=== PATIENT | male | born 1990 | race Caucasian/White ===

== ENCOUNTER 2016-11-15 17:53 | Emergency (ER) | payer SELFPAY ==
[2016-11-15 17:57] VITALS: BP 144/85; PULSE 105; TEMP 99.4; BMI 29.2
[2016-11-15] MEDS ORDERED: IBUPROFEN 600 MG TABLET (FP) PO ONE ×2 (19:38)
--- NOTE | 2016-11-15 19:42 | PDOC ---
History of Present Illness - General Chief Complaint: Laceration Stated Complaint: HAND LACERATION Time Seen by Provider: 11/15/16 18:42 History Source: Patient Exam Limitations: No Limitations - History of Present Illness Initial Comments: 11/15/16 19:36 Patient here with palm laceration and avulsion laceration to right hand. Was using a car [place]opa that slipped and with patient attempting to grab incised the palm midpoint of his right hand in a jagged laceration with an avulsion laceration at second MCP. Denies numbness or tingling to fingers, no other injury. Denies crush injury and states washed with peroxide soap and water at home. Occurred: reports: just prior to arrival, this evening Severity: reports: mild Pain Location: reports: upper extremity (right hand) Past History - Travel Traveled outside of the country in the last 30 days: No Close contact w/someone who was outside of country & ill: No - Past Medical History Allergies/Adverse Reactions: Allergies Allergy/AdvReac Type Severity Reaction Status Date / Time No Known Allergies Allergy Verified 11/15/16 17:56 Home Medications: Ambulatory Orders NK [No Known Home Medication] 08/02/14 Other medical history: NONE - Suicide/Smoking/Psychosocial Hx Smoking Status: Yes Smoking History: Current some day smoker Number of Cigarettes Smoked Daily: 4 Information on smoking cessation initiated: Yes 'Breaking Loose' booklet given: 11/15/16 Hx Alcohol Use: Yes (SOCIAL) Drug/Substance Use Hx: No Trauma Specific PMHX - Complaint Specific PMHX Back Injury: No Neck Injury: No Review of Systems - Review of Systems Able to Perform ROS?: Yes Is the patient limited French proficient: Yes Constitutional: Yes: See HPI. No: Symptoms Reported Musculoskeletal: Yes: Symptoms Reported, See HPI. No: Joint Pain, Joint Swelling Integumentary: Yes: Symptoms Reported, See HPI Neurological: Yes: Symptoms reported, See HPI All Other Systems: Reviewed and Negative *Physical Exam - Vital Signs Last Vital Signs Temp Pulse Resp BP Pulse Ox 99.4 F 105 H 20 144/85 96 11/15/16 17:54 11/15/16 17:54 11/15/16 17:54 11/15/16 17:54 11/15/16 17:54 - Physical Exam General Appearance: Yes: Nourished, Appropriately Dressed, Apparent Distress, Mild Distress HEENT: positive: ROJAS, Normal ENT Inspection, TMs Normal, Pharynx Normal Neck: positive: Supple Musculoskeletal: positive: Normal Inspection Extremity: positive: Normal Capillary Refill, Normal Range of Motion (strong flexion and extension of all digits against resistance and sensation intact distal digits) Integumentary: positive: Normal Color, Other (stellate laceration approximately 3 cm midpoint palm in V-shaped. Has no obvious structural injury in wound, no foreign body.) Neurologic: positive: svp research and strategic analysis II-XII NML intact, Fully Oriented, Alert, Normal Mood/ Affect, Normal Response, Motor Strength 5/5 Procedures - Laceration/Wound Repair Right Volar Hand Wound Length: 2.6 to 5.0 cm Wound Explored: clean Wound's Depth, Shape: into muscle, flap, stellate Irrigated w/ Saline: Yes Betadine Prep: Yes Anesthesia: 1% Lidocaine Wound Debrided: moderate Wound Repaired With: Sutures Suture Size/Type: 5:0 Number of Sutures: 10 Sterile Dressing Applied: Yes Progress Note - Progress Note Progress Note: Palm laceration right hand, repaired *DC/Admit/Observation/Transfer Diagnosis at time of Disposition: Hand laceration Qualifiers: Encounter type: initial encounter Foreign body presence: without foreign body Laterality: right Qualified Code(s): S61.411A - Laceration without foreign body of right hand, initial encounter - Discharge Dispostion Disposition: HOME Condition at time of disposition: Stable Admit: No - Patient Instructions Printed Discharge Instructions: DI for Laceration Repair Additional Instructions: Rest, elevate, avoid strenuous activity or heavy lifting until sutures are removed Leave dressing on for the next 24 hours, Then may remove dressing gently and wash area with soap and water. Reapply bacitracin ointment and dressing daily for the next 5 days On day #6 keep the wound protected and cover as needed until sutures are removed allowing wound to start to dry May use Tylenol or Motrin for pain relief Suture removal in :12-14 Days
== END 2016-11-15 19:46 | disposition home or self-care (01) ==
LOC: JERFT 17:53
PROC: 0JQJ0ZZ Repair Right Hand Subcutaneous Tissue and Fascia, Open Approach (ICD-10-PCS; principal; 2016-11-15)
DX: S61.411A Laceration without foreign body of right hand, initial encounter (principal); W27.8XXA Contact with other nonpowered hand tool, initial encounter; Y93.89 Activity, other specified; Y92.89 Other specified places as the place of occurrence of the external cause; Y99.8 Other external cause status
CPT/HCPCS: 99281-25

== ENCOUNTER 2021-04-04 21:04 | Emergency (ER) | payer SELFPAY ==
[2021-04-04 21:16] VITALS: BP 154/92; PULSE 120; TEMP 99.6; BMI 27.1
[2021-04-04] MEDS ORDERED: IBUPROFEN 600 MG TABLET (FP) PO ONE ×2 (22:36→22:51)
== END 2021-04-04 23:05 | disposition home or self-care (01) ==
LOC: JERFT 21:04
PROC: 0H9QXZZ Drainage of Finger Nail, External Approach (ICD-10-PCS; principal; 2021-04-04)
DX: S62.662A Nondisplaced fracture of distal phalanx of right middle finger, initial encounter for closed fracture (principal); S60.131A Contusion of right middle finger with damage to nail, initial encounter; W22.8XXA Striking against or struck by other objects, initial encounter
CPT/HCPCS: 73140-TC-RT-FY; 99283-25